=== PATIENT | female | born 2005 | race Caucasian/White ===

== ENCOUNTER → 2025-04-04 09:33 | Outpatient (REF) | payer OTHER, SELFPAY | LOC: WDC 09:33 | PROVIDERS: ATTENDING PHYSICIAN Nurse Practitioner Adult Health | DX: N63.25 Unspecified lump in the left breast, overlapping quadrants (principal) | CPT/HCPCS: 76642 ==

== ENCOUNTER 2025-09-19 06:30 | Day surgery (SDC) | payer OTHER, SELFPAY | END 2025-09-19 09:30 | disposition home or self-care (01) | LOC: GI 06:30 | PROVIDERS: ATTENDING PHYSICIAN Internal Medicine Gastroenterology | DX: K62.5 Hemorrhage of anus and rectum (principal); K62.89 Other specified diseases of anus and rectum; Z53.8 Procedure and treatment not carried out for other reasons | CPT/HCPCS: 45378; G0378 ==